=== PATIENT | male | born 1995 | race Caucasian/White ===

== ENCOUNTER 2020-05-22 06:20 | Emergency (ER) | payer OTHER ==
[2020-05-22] MEDS ORDERED: Adacel (T-DAP) 0.5 ML SYRINGE ONE (06:28)
[2020-05-22] MEDS ORDERED: Morphine 4 MG/ML VIAL ONE (06:44)
[2020-05-22 06:49] LABS: #Eosinphils 0.3 thou/uL (0.0-0.7); #Lymphocytes 2.1 thou/uL (1.20-3.40); #Monocytes 0.6 thou/uL (0.11-0.59); #Neutrophils 5.4 thou/uL (1.40-6.50); %Basophils 0.4 % (0.0-1.0); %Eosinophils 3.3 % (0.0-10.0); %Monocytes 7.4 % (0.0-10.0); %Neutrophils 63.8 % (42.0-75.0); Hemoglobin 15.4 g/dL (14.0-18.0); Mean Corpuscular HGB CONC 34.7 g/dL (32.0-36.0); Mean Corpuscular Hemoglobin 31.9 pg (27.0-31.0); Mean Corpuscular Volume 91.9 fL (78.0-98.0); Mean Platelet Volume 7.2 fL (7.4-10.4); Platelet Count 232 thou/uL (130-400); Red Blood Cell (RBC) Count 4.81 mill/uL (4.70-6.10); White Blood Cell (WBC) Count 8.4 thou/uL (4.8-10.8)
[2020-05-22 07:15] LABS: ALT (SGPT) 18 U/L (8-55); AST (SGOT) 27 U/L (5-34); Albumin 4.5 g/dL (3.5-5.0); Alkaline Phosphatase 108 U/L (40-110); Anion Gap 15 mmol/L (10-20); BUN (Urea Nitrogen) 12 mg/dL (8.9-20.6); Bilirubin, Total 0.7 mg/dL (0.2-1.2); Calc. Creatinine Clearance 0 mL/min (70-130); Calcium 9.3 mg/dL (7.8-10.44); Carbon Dioxide 24 mmol/L (22-29); Chloride 102 mmol/L (98-107); Estimated GFR-MDRD Greater than 90; Globulin 2.6 g/dL (2.4-3.5); Glucose 114 mg/dL (70-105); Potassium 3.6 mmol/L (3.5-5.1); Protein, Total 7.1 g/dL (6.0-8.3); Sodium 137 mmol/L (136-145)
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
[2020-05-22] MEDS ORDERED: Fluorescein Opthalmic Strip ONE (07:48)
[2020-05-22] MEDS ORDERED: Proparacaine 0.5% Opth 15 ML BOT ONE (07:49)
[2020-05-22] MEDS ORDERED: Lidocaine 1% PF 5 ML VIAL ONE (07:51)
[2020-05-22] MEDS ORDERED: Ketorolac Tromethamine 30 MG/ML VIAL ONE (07:51)
[2020-05-22] MEDS ORDERED: Lidocaine 1% w/Epinephrine 1:100K 20 ML VIAL ONE (07:54)
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
[2020-05-22] MEDS ORDERED: Bacitracin 1 PK ONE (08:38)
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
[2020-05-22] MEDS ORDERED: Iopamidol-370 76% 500 ML 1 ML ONE (13:09)
== END 2020-05-22 09:55 | disposition home or self-care (01) ==
LOC: ERS 06:20
DX: S06.0X0A Concussion without loss of consciousness, initial encounter (principal); S01.81XA Laceration without foreign body of other part of head, initial encounter; S51.012A Laceration without foreign body of left elbow, initial encounter; S05.01XA Injury of conjunctiva and corneal abrasion without foreign body, right eye, initial encounter; F17.210 Nicotine dependence, cigarettes, uncomplicated; Z23 Encounter for immunization; V89.2XXA Person injured in unspecified motor-vehicle accident, traffic, initial encounter
CPT/HCPCS: 12011; 12032; 70450; 71045; 72125; 74177; 80053; 85025; 90471; 90715; 96374; 96375; G0390; J1885; J2270; Q9967

== ENCOUNTER 2020-06-05 10:16 | Emergency (ER) | payer OTHER | END 2020-06-05 11:28 | disposition home or self-care (01) | LOC: ER/OP 10:16 → ERS 10:16 | DX: S51.812D Laceration without foreign body of left forearm, subsequent encounter (principal); F17.210 Nicotine dependence, cigarettes, uncomplicated ==